=== PATIENT | female | born 1990 | race Caucasian/White ===

== ENCOUNTER → 2017-10-07 | Outpatient (CLI) | payer BC | LOC: ZCOL.LAB 12:40 | DX: Z01.89 Encounter for other specified special examinations (principal) ==

== ENCOUNTER → 2017-10-07 | Outpatient (CLI) | payer BC | LOC: ZCOL.LAB 12:50 | DX: M79.661 Pain in right lower leg (principal); R22.41 Localized swelling, mass and lump, right lower limb ==

== ENCOUNTER 2018-04-13 08:45 | Outpatient (RCR) | payer OTHER | END 2018-07-04 15:38 | disposition home or self-care (01) | LOC: WSOH 08:45 | DX: S96.112A Strain of muscle and tendon of long extensor muscle of toe at ankle and foot level, left foot, initial encounter (principal); W00.0XXA Fall on same level due to ice and snow, initial encounter; Y93.01 Activity, walking, marching and hiking; Y92.213 High school as the place of occurrence of the external cause; Y99.0 Civilian activity done for income or pay; E11.9 Type 2 diabetes mellitus without complications; E78.00 Pure hypercholesterolemia, unspecified; Z79.899 Other long term (current) drug therapy; Z79.84 Long term (current) use of oral hypoglycemic drugs ==

== ENCOUNTER → 2020-08-12 | Outpatient (CLI) | payer BC | LOC: COL.RAD 09:37 | DX: K76.0 Fatty (change of) liver, not elsewhere classified (principal); E66.01 Morbid (severe) obesity due to excess calories; Z68.41 Body mass index [BMI] 40.0-44.9, adult; E13.9 Other specified diabetes mellitus without complications ==